=== PATIENT | male | born 1995 | race Caucasian/White ===

== ENCOUNTER 2021-09-10 00:39 | Emergency (ER) | payer OTHER ==
[2021-09-10 01:32] LABS: BASOPHIL 0.3 % (0-2); EOSINOPHIL 0.2 % (0-5); HCT 41.7 % (42.0-52.0); HGB 14.8 g/dl (13.2-18.0); LYMPHOCYTE 8.7 % (15-48); MCHC 35.5 g/dL (32.0-36.0); MCV 87.4 fL (78.0-100.0); MONOCYTE 5.9 % (0-12); MPV 9.3 fL (6.0-9.5); NEUTROPHIL 84.4 % (41-80); NRBC 0; PLT 286 K/uL (150-400); RBC 4.77 M/uL (4.70-6.00); RDW 11.1 % (11.5-14.0); WBC 21.2 K/uL (4.0-10.5)
[2021-09-10 01:40] LABS: BUN/CREAT RATIO (CALC) 10.6 RATIO; CREATININE 1.04 mg/dL (0.67-1.17); POTASSIUM 3.6 mmol/L (3.5-5.1)
[2021-09-10 02:01] LABS: CORONAVIRUS 2019 SARS-COV-2 NEGATIVE (NEGATIVE); INFLUENZA A NAA NEGATIVE (NEGATIVE)
[2021-09-10 02:44] LABS: LACTIC ACID 1.4 mmol/L (0.4-1.9)
[2021-09-10 05:49] LABS: MONOSPOT (MONONUCLEOSIS) NEGATIVE (NEGATIVE)
[2021-09-10] MEDS ORDERED: PREDNISONE 20MG20 MG PO (05:58)
[2021-09-10] MEDS ORDERED: NORCO 5-325 TA1 EACH PO (05:58)
[2021-09-10] MEDS ORDERED: CLEOCIN300 MG PO (05:58)
== END 2021-09-10 05:50 | disposition home or self-care (01) ==
LOC: FER 00:39
PROVIDERS: Internal Medicine
DX: J36 Peritonsillar abscess (principal); J39.2 Other diseases of pharynx; Z20.822 Contact with and (suspected) exposure to COVID-19; Z88.0 Allergy status to penicillin
CPT/HCPCS: 36415; 70491; 80048; 83605; 85025; 86308; 87040; J0692; J1100; J1170; J3370; J7030; J7050; U0002

== ENCOUNTER 2021-09-12 06:47 | Emergency (ER) | payer OTHER ==
[~2021-09-12 06:47] MED LIST: CLEOCIN300 MG PO; NORCO 5-325 TA1 EACH PO; PREDNISONE 20MG20 MG PO
[2021-09-12 08:03] LABS: BASOPHIL 0.1 % (0-2); EOSINOPHIL 0.2 % (0-5); HCT 39.6 % (42.0-52.0); HGB 13.4 g/dl (13.2-18.0); LYMPHOCYTE 13.5 % (15-48); MCH 30.5 pg (25.0-31.0); MCHC 33.8 g/dL (32.0-36.0); MCV 90.2 fL (78.0-100.0); MONOCYTE 6.9 % (0-12); MPV 9.3 fL (6.0-9.5); NEUTROPHIL 78.7 % (41-80); NRBC 0; PLT 305 K/uL (150-400); RBC 4.39 M/uL (4.70-6.00); RDW 11.5 % (11.5-14.0); WBC 17.6 K/uL (4.0-10.5)
[2021-09-12 08:17] LABS: BUN/CREAT RATIO (CALC) 14.3 RATIO; CREATININE 0.91 mg/dL (0.67-1.17); POTASSIUM 3.6 mmol/L (3.5-5.1)
[2021-09-12 08:36] LABS: CORONAVIRUS 2019 SARS-COV-2 NEGATIVE (NEGATIVE); INFLUENZA A NAA NEGATIVE (NEGATIVE)
== END 2021-09-12 12:36 | disposition home or self-care (01) ==
LOC: FER 06:47
PROVIDERS: Emergency Medicine; Internal Medicine
DX: J36 Peritonsillar abscess (principal); Z88.0 Allergy status to penicillin; Z20.822 Contact with and (suspected) exposure to COVID-19
CPT/HCPCS: 36415; 70491; 80048; 84145; 85025; 87880; J1100; J1170; Q9967; U0002